=== PATIENT | female | born 1975 | race Two or more races ===

== ENCOUNTER → 2024-06-16 | Outpatient (CLI) | payer OTHER, SELFPAY ==
--- NOTE | 2024-06-16 09:30 | XR_ITS ---
Examination: MRI lumbar spine without contrast Date and time of exam: June 16, 2024 0945 hrs. Indications: Low back pain radiating down the legs 7 months Technique: Multiple MRI axial and sagittal sections lumbar spine. Sagittal T2-weighted images, TR 3500, TE 118 T1 weighted transverse sections, TR 688 T8.5, T2-weighted sagittal sections T1 weighted sagittal sections TR 621, TE 30 T2 axial sections, TR 4, 190, TE 84. Findings: Adequate alignment lumbar vertebral bodies on the lateral view No lumbar fracture Moderate disc narrowing upper 4 lumbar levels Diffuse lumbar disc desiccation No spondylolisthesis L5-S1 no disc protrusion L4-L5 3 mm central lumbar disc bulge L3-L4 3 mm central right paracentral subarticular disc bulge L2-L3 4 mm central lumbar disc bulge L1-L2 1 mm central disc protrusion Impression: L4-L5, L3-L4 3 mm central lumbar disc bulges L2-L3 4 mm central lumbar disc bulge
== END | disposition home or self-care (01) ==
PROVIDERS: PCP Internal Medicine; Referring Provider Internal Medicine; Visit Provider Internal Medicine
DX: M51.360 Other intervertebral disc degeneration, lumbar region with discogenic back pain only (principal)
CPT/HCPCS: 72148

== ENCOUNTER → 2024-09-20 | Outpatient (CLI) | payer OTHER, SELFPAY ==
--- NOTE | 2024-09-20 13:30 | XR_ITS ---
Examination: Screening digital mammography, bilateral Computer aided detection 3-D breast Tomosynthesis, bilateral Date and time of exam: September 20, 2024 at 1332 hours Compared to mammograms dating to September 12, 2020 Indication: Screening Technique: Nonmagnified MLO, CC views of the breasts to been obtained, reconstructed from 3-D Tomosynthesis images. R2 computer aided detection program utilized for evaluation of suspicious masses and/or abnormal calcifications. 3-D Tomosynthesis images obtained. Findings: Scattered areas of fibroglandular density 14 mm focal asymmetry upper outer right breast Benign calcifications Impression: BI-RADS Category 0: Incomplete: Need additional imaging evaluation 14 mm focal asymmetry upper outer right breast, recommend follow-up spot tomographic views upper outer quadrant right breast, right breast sonography to complete the workup
== END | disposition home or self-care (01) ==
LOC: CDIM 13:13
PROVIDERS: Referring Provider Internal Medicine; Visit Provider Internal Medicine
DX: Z12.31 Encounter for screening mammogram for malignant neoplasm of breast (principal); R92.8 Other abnormal and inconclusive findings on diagnostic imaging of breast; N64.89 Other specified disorders of breast
CPT/HCPCS: 77063; 77067

== ENCOUNTER → 2024-10-22 | Outpatient (CLI) | payer OTHER, SELFPAY ==
--- NOTE | 2024-10-22 09:00 | XR_ITS ---
Examination: Breast ultrasound, unilateral, right complete Date and time of exam: October 22, 2024 0910 hours INDICATIONS: Mammogram September 20, 2024 14 mm focal asymmetry upper outer right breast Technique: Real-time lopez scale ultrasonographic imaging performed right breast including all 4 quadrants as well as nipple retroareolar and axillary region. Findings: 9:00 cyst 7 x 6 mm 10:00 cyst 4 x 5 mm No solid nodules IMPRESSION: BI-RADS Category 2: Benign findings
--- NOTE | 2024-10-22 09:30 | XR_ITS ---
Examination: Diagnostic digital mammography, unilateral, right Computer aided detection 3-D breast Tomosynthesis, unilateral Date and time of exam: October 22, 2024 0921 hours INDICATIONS: Mammogram September 20, 2024 14 mm focal asymmetry upper outer right breast Technique: Nonmagnified MLO, CC views of the right breast have been obtained, reconstructed from 3-D Tomosynthesis images. R2 computer aided detection program utilized for evaluation of suspicious masses and/or abnormal calcifications. 3-D Tomosynthesis images obtained. Findings: Scattered areas of fibroglandular density No suspicious nodules are noted on the spot compression views Impression: BI-RADS category 2: Benign findings Return to yearly follow-up mammography
== END | disposition home or self-care (01) ==
LOC: CDIM 08:48
PROVIDERS: PCP Internal Medicine; Referring Provider Internal Medicine; Visit Provider Internal Medicine
DX: R92.321 Mammographic fibroglandular density, right breast (principal); N60.01 Solitary cyst of right breast
CPT/HCPCS: 76641; 77061; 77065; G0279

== ENCOUNTER → 2025-01-25 | Outpatient (CLI) | payer OTHER, SELFPAY ==
[2025-01-25 12:09] LABS: Basophils # (Auto) 0.0 Thou/mm3 (0.0-0.2); Basophils % (Auto) 1 % (0-2.5); Eosinophils # (Auto) 0.1 Thou/mm3 (0.0-0.5); Eosinophils % (Auto) 1 % (0-10); Hematocrit 37.9 % (36.0-46.0); Hemoglobin 12.7 g/dL (12.0-16.0); Immature Granulocytes Auto 0.02 Thou/mm3 (0.00-0.00); Lymphocytes # (Auto) 2.1 Thou/mm3 (1.0-4.8); Lymphocytes % (Auto) 26 % (10-50); Mean Corpuscular HGB Conc 33.5 g/dl (31.0-37.0); Mean Corpuscular Hemoglobin 32.1 pg (25.0-35.0); Mean Corpuscular Volume 96 fL (80-100); Monocytes # (Auto) 0.5 Thou/mm3 (0.0-0.8); Monocytes % (Auto) 6 % (0-12); Neutrophils # (Auto) 5.3 Thou/mm3 (1.8-7.7); Neutrophils % (Auto) 67 % (37-80); Nucleated Red Blood Cell # 0.00 Thou/mm3 (0.00-0.00); Nucleated Red Blood Cell % 0 /100 WBC (0); Platelet Count 296 Thou/mm3 (140-440); RDW Standard Deviation 45.1 fL (36.4-46.3); Red Blood Count 3.96 Miln/mm3 (4.00-5.20); White Blood Count 8.0 Thou/mm3 (3.6-11.0)
[2025-01-25 12:21] LABS: Alanine Aminotransferase 38 U/L (10-49); Albumin, Serum 4.4 gm/dL (3.5-5.0); Albumin/Globulin Ratio 1.8 (1.2-2.2); Alkaline Phosphatase 88 U/L (46-116); Anion Gap 8 (7-16); Aspartate Amino Transferase 27 U/L (0-34); BUN/Creatinine Ratio 11 Ratio (12-20); Bilirubin,Total 0.5 mg/dL (0.3-1.2); Blood Urea Nitrogen 10 mg/dL (9-23); Calcium 9.2 mg/dL (8.3-10.6); Calcium (Corrected) 9.2 mg/dL (8.5-10.1); Carbon Dioxide 29.4 mMol/L (20.0-31.0); Chloride 100 mMol/L (98-107); Creatinine (Component) 0.9 mg/dL (0.6-1.3); Globulin 2.5 gm/dL (2.3-3.5); Glucose 80 mg/dL (74-106); Osmolality,Calculated 271 (275-295); Potassium 3.9 mMol/L (3.4-5.1); Sodium 137 mMol/L (136-145); Total Protein 6.9 gm/dL (5.7-8.2); eGFR > 60 See Note
== END | disposition home or self-care (01) ==
LOC: COPL 11:08
PROVIDERS: PCP Internal Medicine; Referring Provider Internal Medicine; Visit Provider Internal Medicine
DX: E78.5 Hyperlipidemia, unspecified (principal)
CPT/HCPCS: 36415; 80053; 85025

== ENCOUNTER → 2025-02-07 | Outpatient (CLI) | payer OTHER, SELFPAY ==
--- NOTE | 2025-02-07 09:19 | XR_ITS ---
Examination: Knee, right , 3 views Technique: Knee AP, lateral, oblique 3 views Date and time of exam: February 07, 2025 0927 hours INDICATIONS: Patient fell 3 weeks ago with injury to the knee, knee pain. FINDINGS: Mild to moderate tricompartment osteoarthritis, most prominent patellofemoral joint No fracture or dislocation IMPRESSION: No fracture or dislocation
== END | disposition home or self-care (01) ==
LOC: CDIM 09:06
PROVIDERS: PCP Internal Medicine; Referring Provider Internal Medicine; Visit Provider Internal Medicine
DX: S89.91XA Unspecified injury of right lower leg, initial encounter (principal); W19.XXXA Unspecified fall, initial encounter
CPT/HCPCS: 73562

== ENCOUNTER 2025-04-07 17:05 | Emergency (ER) | payer OTHER, SELFPAY ==
[2025-04-07 17:06] VITALS: BMI 30.2
[2025-04-07 17:25] VITALS: BP 129/82; PULSE 82; RESP 18; TEMP 37.1; O2SAT 96
--- NOTE | 2025-04-07 17:39 | XR_ITS ---
EXAMINATION: Ankle, right . Technique: Ankle AP, oblique, lateral 3 views Date and time of exam: April 07, 2025 1748 hrs., Comparison 03/20/2022 Indications: Injury to the ankle yesterday, ankle pain. Findings: Lateral malleolar soft tissue swelling No fracture or dislocation 8mm plantar bony calcaneal spur Impression: No ankle fracture or dislocation
--- NOTE | 2025-04-07 17:39 | XR_ITS ---
Examination: Toes, left foot first digit 2 views Technique: Left first digit 2 views AP lateral Date and time of exam: April 07, 2025, 1731 hrs. Indications: Kidney 3 to the foot yesterday with first digit pain. Findings: No acute fracture No dislocation No foreign body Impression: No acute fracture
--- NOTE | 2025-04-07 17:40 | PD.EDANKLE ---
Lower Extremity Injury RME/HPI General Chief Complaint: Ankle/Foot Injury Stated Complaint: INJURY TO LEFT TOE AND RIGHT ANKLE YESTERDAY Time Seen by Provider: 04/07/25 17:17 Source: patient, RN notes reviewed and old records reviewed Arrival date/time: 04/07/25 17:05 Mode of arrival: wheelchair Limitations: no limitations RME / HPI RME / HPI Narrative: 49yof presents to ED for evaluation s/p fall yesterday. Patient reports she stubbed left great toe against a rock then fell and rolled her right ankle, reports lateral pain and swelling. No deformity reported. Patient has ambulated to [facility] since injury. Patient has taken ibuprofen with mild relief. Related Data Previous Rx's ?Medication ?Instructions ?Recorded amoxicillin 875 mg-potassium 1 tab PO BID #20 tabs 11/30/21 clavulanate 125 mg tablet ibuprofen 800 mg tablet 800 mg PO TID PRN pain #30 tabs 03/20/22 ibuprofen 600 mg tablet 600 mg PO Q6H PRN pain #30 tabs 04/07/25 Allergies Allergy/AdvReac Type Severity Reaction Status Date / Time Sulfa (Sulfonamide Allergy Severe Hives Verified 04/07/25 17:08 Antibiotics) Review of Systems Review of Systems Systems Reviewed: All systems reviewed, normal except as documented Musculoskeletal Musculoskeletal: Reports arthralgias, Denies deformity, Reports joint swelling, Denies numbness and Denies tingling Integumentary/Breasts Comments: Reports bruising Neurologic Neurologic: Denies numbness and Denies tingling Past Medical History Surgical History OTHER SURGICAL HX: Right knee arthroscopy Social History SMOKING STATUS: Never smoker SUBSTANCE USE: marijuana ALCOHOL: Current (social) Past Medical History Comments PMH COMMENT: denies pmhx ED Exam General Limitations: Present no limitations General appearance: Present alert and in no apparent distress Head Head exam: Present atraumatic and normocephalic Eye Eye exam: Present normal appearance, PERRL and EOMI ENT ENT exam: Present normal exam and mucous membranes moist Neck Neck exam: Present normal inspection and full ROM Chest Chest inspection: Present normal inspection and symmetric chest wall rise Respiratory Respiratory exam: Present normal lung sounds bilaterally; Absent respiratory distress Cardiovascular Cardiovascular exam: Present regular rate and normal rhythm Extremities Exam Extremities exam: Present other (Tenderness/swelling with contusion to right lateral ankle. Limited ROM 2/2 pain. Able to wiggle all toes. 2+ pedal pulse, sensation intact. Mild tenderness to left great toe) Back Exam Back exam: Present normal inspection and full ROM Neurological Exam Neurological exam: Present alert and oriented X3 Psychiatric Psychiatric exam: Present normal affect and normal mood Skin Skin exam: Present warm, dry and intact Course Quality Measures none Orders Category Date Time Status Crutches .NOW Care 04/07/25 19:03 Completed Splint / Immobilizer STAT Care 04/07/25 18:50 Completed XR ankle comp RT min 3V Stat Exams 04/07/25 17:39 Completed XR toe LT min 2V Stat Exams 04/07/25 17:39 Completed Vital Signs Vital signs: Vital Signs Temperature 98.8 F 04/07/25 17:25 Pulse Rate 82 04/07/25 17:25 Respiratory Rate 18 04/07/25 17:25 Blood Pressure 129/82 04/07/25 17:25 Pulse Oximetry (%) 96 04/07/25 17:25 Oxygen Delivery Method Room Air 04/07/25 17:25 PROCEDURES: Splint Fabrication: Pre-Fabricated Type: Ankle Stirrup Reason for Splint: Improve Function, Optimal Positioning, Pain Management, Prevent Deformities and Support Joint/Muscle Circulation Distal to Splint: Yes Movement Distal to Splint: Yes Senation Distal to Splint: Yes Tolerance: Tolerates Well Extremity Injury, Lower MDM Narrative MDM Narrative:: 49yof presents to ED for evaluation s/p fall yesterday. Patient reports she stubbed left great toe against a rock then fell and rolled her right ankle, reports lateral pain and swelling. No deformity reported. Patient has ambulated to [facility] since injury. Patient has taken ibuprofen with mild relief. Patient is neurovascularly intact, compartments soft. Encouraged RICE therapy, Motrin/Tylenol prn pain. Ortho referral given for follow-up and further management as needed. Stable for discharge, RTED precautions given. Patient data External records reviewed:: [facility] previous records (03/20/2022 ED visit for ankle sprain) Clinical information provided by:: patient Social determinants that could affect healthcare access:: none Patient has the following chronic illnesses:: None How is presenting disease/condition affected by chronic disease/condition?: no chronic disease Evaluation data The following diagnostics were reviewed and interpreted by me:: radiology exam(s) Lab and/or radiology exams considered but not ordered:: none Interpretation Summary: Ankle x-rays: No fracture per my read Medications / Prescriptions Medications or Prescriptions considered but not ordered:: None Medication administrations:: None Consultations Consultation(s) initiated? (list below): No Diagnosis Extremity Injury, Lower Differential Diagnosis: other (Fracture, dislocation, sprain, strain, contusion, MSK pain) Most likely diagnosis given after review of the tests above:: Ankle sprain, toe contusion Admission Indicated Admission indicated?: not indicated Admission Request Was there a request for admission?: No Disposition Plan Disposition Plan: Discharge Discharge Attestation Discharge Attestation: The patient and all family members were given an opportunity to ask questions and understood the discharge instructions. Discharge instructions specifically effects, indications for sooner follow up or return to the emergency department, and the expected course of current diagnosis. Patient condition: Stable Discharge Plan Plan Patient Disposition: HOME (Self Care) Patient condition on transfer: Stable Prescriptions/Referrals Prescriptions/Med Rec: New ibuprofen 600 mg tablet 600 mg PO Q6H PRN (Reason: pain) Qty: 30 0RF No Action amoxicillin-pot clavulanate 875-125 mg tablet 1 tab PO BID Qty: 20 0RF ibuprofen 800 mg tablet 800 mg PO TID PRN (Reason: pain) Qty: 30 0RF Referrals: Maddie Hargrove MD [Primary Care Provider, Internal Medicine] - In 1 week Ilya Mtz MD [Physician, Orthopedics] Referral Note: Call to schedule an appointment as needed Problem List Clinical Impression: Right ankle sprain, Contusion of great toe, left Patient/Caregiver Discharge Instructions Education Materials: ED Ankle Sprain (Adult) Print Language: Romanian Stand Alone Forms: Amanda Award Info., Work/School Release, Patient Portal Info Letter PA/CODING FILE CLERK Supervising Physician PA/CODING FILE CLERK Supervising Physician: Timmy
== END 2025-04-07 19:19 | disposition home or self-care (01) ==
PROVIDERS: Emergency Provider Emergency Medicine; PCP Internal Medicine
DX: S93.401A Sprain of unspecified ligament of right ankle, initial encounter (principal); S90.112A Contusion of left great toe without damage to nail, initial encounter; W22.09XA Striking against other stationary object, initial encounter
CPT/HCPCS: 29515; 73610; 73660; 99284